=== PATIENT | male | born 1990 | race Caucasian/White ===

== ENCOUNTER → 2024-08-03 | Outpatient (CLI) | payer OTHER | LOC: M RAD 14:52 | PROVIDERS: ATTEND Physician Assistant Medical | DX: J01.40 Acute pansinusitis, unspecified (principal); J31.0 Chronic rhinitis ==

== ENCOUNTER 2024-11-05 10:37 | Day surgery (SDC) | payer OTHER ==
[~2024-11-05] VITALS: Ht 177.8 cm; Wt 85.3 kg
[~2024-11-05 10:37] MED LIST: CETI-24 PO; FLUTISP
[2024-11-05] MEDS ORDERED: NS (Normal Saline) 0.9% 1,000 ML IV SCH ×2 (11:15→16:25)
[2024-11-05] MEDS ORDERED: ACETAMINOPHEN 1000MG/100ML IV BAG As Ordered ONE (13:22)
[2024-11-05] MEDS ORDERED: MIDAZOLAM INJ 2MG/2ML VIAL As Ordered ONE (13:22)
[2024-11-05] MEDS ORDERED: ROCURONIUM BROMIDE 50MG/5ML VIAL As Ordered ONE (13:22)
[2024-11-05] MEDS ORDERED: propofoL 200 MG/20 ML VIAL As Ordered ONE (13:22)
[2024-11-05] MEDS ORDERED: fentaNYL 250 MCG/5 ML INJECTION As Ordered ONE (13:22)
[2024-11-05] MEDS ORDERED: LIDOCAINE 2% 100MG/5ML SDV (FOR ANES.) As Ordered ONE (13:22)
[2024-11-05] MEDS ORDERED: ONDANSETRON 4MG 2ML VIAL As Ordered ONE (13:22)
[2024-11-05] MEDS: EPINEPHrine 1MG/ML INJ 30ML MD-VIAL As Ordered ONE (13:27)
[2024-11-05] MEDS: METHYLENE BLUE 0.5% (5MG/ML) 10 ML AMP (PROVAYBLUE) As Ordered ONE (13:27)
[2024-11-05] MEDS: LIDOCAINE W/EPINEPHRINE 1% 20ML VIAL As Ordered ONE (13:28)
[2024-11-05] MEDS ORDERED: HYDROmorphone HCL 2MG/ML 1ML VIAL As Ordered ONE (13:33)
[2024-11-05] MEDS ORDERED: fentaNYL 100 MCG/2 ML INJECTION IV PRN (16:25)
[2024-11-05] MEDS ORDERED: HYDROMORPHONE HCL 0.5 MG/ 0.5 ML SYRINGE IV PRN (16:25)
[2024-11-05] MEDS: SODIUM CHLORIDE 0.9% NASAL GEL 15GM (AYR) As Ordered ONE (16:38)
[2024-11-05] MEDS: ONDANSETRON 4MG 2ML VIAL IV PRN (17:12)
[2024-11-05] MEDS: oxyCODONE 5MG TAB PO PRN (17:20)
[2024-11-05] MEDS: METOCLOPRAMIDE INJ 10MG/2ML VIAL IV PRN (17:39)
[2024-11-05 19:25] VITALS: BP 136/78; TEMP 97.6; O2SAT 95
== END 2024-11-05 19:46 | disposition home or self-care (01) ==
LOC: M SDC 10:37
PROVIDERS: ATTEND Otolaryngology
DX: J01.01 Acute recurrent maxillary sinusitis (principal); J01.21 Acute recurrent ethmoidal sinusitis; J01.11 Acute recurrent frontal sinusitis; J01.31 Acute recurrent sphenoidal sinusitis; J33.0 Polyp of nasal cavity; J31.0 Chronic rhinitis; G47.30 Sleep apnea, unspecified; Z79.899 Other long term (current) drug therapy; F17.220 Nicotine dependence, chewing tobacco, uncomplicated
CPT/HCPCS: 31259; 31267; 31296; 61782; 88305; C2625; J0131; J0171; J1100; J1171; J2250; J2405; J2765; J3010; Q9968